=== PATIENT | female | born 1980 | race African-American/Black ===

== ENCOUNTER 2019-07-09 02:56 | Emergency (ER) | payer MEDICAID, OTHER ==
[~2019-07-09] VITALS: Ht 167.6 cm; Wt 82.0 kg
[2019-07-09] MEDS ORDERED: SODIUM CHLORIDE 0.9% 1,000 ML IV SCH (04:25)
[2019-07-09] MEDS ORDERED: FAMOTIDINE 20MG/2ML VIAL IV ONE (04:30)
[2019-07-09] MEDS ORDERED: DIPHENHYDRAMINE 50MG/ML VIAL IV ONE (04:30)
[2019-07-09 07:39] VITALS: BP 105/63
== END 2019-07-09 07:43 | disposition home or self-care (01) ==
LOC: ER 02:56
DX: T78.40XA Allergy, unspecified, initial encounter (principal); X58.XXXA Exposure to other specified factors, initial encounter
CPT/HCPCS: 96374; 96375; 99283; J1200; J3490